=== PATIENT | male | born 1965 | race Caucasian/White ===

== ENCOUNTER 2017-11-20 10:52 | Day surgery (SDC) | payer OTHER ==
[~2017-11-20] VITALS: Ht 185.4 cm; Wt 104.5 kg
[~2017-11-20 10:52] MED LIST: ATOR10TA PO; BUPR150T6 PO; CYCL-259 PO; LOSA50TA7 PO; OMEP-110 PO
[2017-11-20] MEDS ORDERED: MIDAZOLAM 1 MG/ML, 2ML ONE (11:15)
[2017-11-20] MEDS ORDERED: FENTANYL PF 250 MCG/5ML ONE (11:15)
[2017-11-20 11:26] VITALS: BP 145/86
[2017-11-20] MEDS ORDERED: LACTATED RINGERS 1,000 ML IV SCH (11:30)
[2017-11-20] MEDS ORDERED: THROMBIN 5,000 UNIT VIAL TP ONE (11:58)
[2017-11-20] MEDS ORDERED: LIDOCAINE 1%-EPI 1:100K, 30ML ONE (11:58)
[2017-11-20] MEDS ORDERED: FENTANYL PF 100 MCG/2ML ONE (11:58)
[2017-11-20] MEDS ORDERED: BUPIVACAINE/PF-EPI 0.5% 1:200K ONE (11:58)
[2017-11-20] MEDS ORDERED: morphine SULFATE/PF 1 MG/ML, 10ML ONE (11:58)
[2017-11-20] MEDS ORDERED: ACETAMINOPHEN 500 MG TABLET PO ONE (12:00)
[2017-11-20] MEDS ORDERED: SCOPOLAMINE PATCH, 1.5MG PATCH.TD72 TD ONE (12:00)
[2017-11-20] MEDS ORDERED: GABAPENTIN 300 MG CAPSULE PO ONE (12:00)
[2017-11-20] MEDS ORDERED: hydrALAzine 20 MG/ML, 1ML IV PRN (13:30)
[2017-11-20] MEDS ORDERED: OXYcodone 5 MG/5 ML ORAL.SOL UDC PO PRN (13:30)
[2017-11-20] MEDS ORDERED: FENTANYL PF 100 MCG/2ML IV PRN (13:30)
[2017-11-20] MEDS ORDERED: KETOROLAC 30 MG/1 ML IV PRN (13:30)
[2017-11-20] MEDS ORDERED: MEPERIDINE/PF 25MG/0.5ML IVPush PRN (13:30)
[2017-11-20] MEDS ORDERED: METOCLOPRAMIDE 5 MG/ML, 2ML IV PRN (13:30)
[2017-11-20] MEDS ORDERED: ONDANSETRON 2MG/ML, 2ML IVPush PRN (13:30)
[2017-11-20] MEDS ORDERED: LABETALOL 5MG/ML, 20ML IV PRN (13:30)
[2017-11-20] MEDS ORDERED: HYDROmorphone 1 MG/ML, 1ML IV PRN (13:30)
[2017-11-20] MEDS ORDERED: ALBUTEROL SULFATE 2.5 MG/3 ML NPPB PRN (13:30)
[2017-11-20] MEDS ORDERED: PROMETHAZINE 25 MG/ML, 1ML IV PRN (13:30)
[2017-11-20] MEDS ORDERED: OXYcodone 5 MG/5 ML ORAL.SOL UDC ONE (15:03)
[2017-11-20] MEDS ORDERED: ONDANSETRON 2MG/ML, 2ML ONE (16:21)
[2017-11-20] MEDS ORDERED: ROCURONIUM 10MG/ML,5ML ONE (16:21)
[2017-11-20] MEDS ORDERED: DEXAMETHASONE 4 MG/ML, 1ML ONE (16:21)
[2017-11-20] MEDS ORDERED: SUCCINYLCHOLINE 20 MG/ML, 10ML ONE (16:21)
[2017-11-20] MEDS ORDERED: CEFAZOLIN 1,000 MG ONE (16:21)
[2017-11-20] MEDS ORDERED: PROPOFOL 10 MG/ML, 20ML ONE (16:21)
== END 2017-11-20 18:15 | disposition home or self-care (01) ==
LOC: OUT 10:52
PROVIDERS: ATTEND Orthopaedic Surgery Orthopaedic Surgery of the Spine
DX: M51.16 Intervertebral disc disorders with radiculopathy, lumbar region (principal); M48.061 Spinal stenosis, lumbar region without neurogenic claudication; I10 Essential (primary) hypertension; Z90.49 Acquired absence of other specified parts of digestive tract; Z88.0 Allergy status to penicillin
CPT/HCPCS: 63047; 72100; C1751; J0330; J0690; J1100; J2250; J2405; J2704; J3010; J3490; J7120; J2274